=== PATIENT | female | born 1960 ===

== ENCOUNTER 2022-01-05 08:33 | Outpatient (CLI) | payer BC, SELFPAY ==
--- NOTE | 2022-01-05 08:30 | RT.EKG_ITS ---
APPROVED REPORT Exam: Resting ECG Reason for Exam: LEE Patient Location: O HR:96 bpm ECG Measurements Heart Rate 96 AXIS AR 150 P 44 QRSd 99 QRS -55 QT 366 T 52 QTc 463 Conclusion Sinus rhythm...normal P axis, V-rate 50- 99 Left anterior fascicular block...axis(240,-40), init forces inf Baseline wander in lead(s) V3
== END 2022-01-05 08:34 | disposition home or self-care (01) ==
LOC: DI.CARD 08:34
PROVIDERS: PCP Nurse Practitioner Family; Visit Provider Internal Medicine Cardiovascular Disease
DX: R06.00 Dyspnea, unspecified (principal); I44.4 Left anterior fascicular block; R94.31 Abnormal electrocardiogram [ECG] [EKG]
CPT/HCPCS: 93010

== ENCOUNTER 2022-01-13 00:10 | Outpatient (CLI) | payer BC, SELFPAY ==
--- NOTE | 2022-01-13 07:15 | DI.NM_ITS ---
APPROVED REPORT Exam: Pharmacologic Ordering Provider:JEFF QUINTEROS, Contact Number: BMI: 0 Indications: DYSPNEA ON EXERTION. Stress Test Details Test: Exercise stress converted to pharmacologic stress due to failure to obtain a diagnostic stress test. Reason for pharmacologic stress test: changed from exercise stress test due to inability to reach t arget heart rate. Nuclear Acquisition: Rest Tc-99m/Stress Tc-99m 1 day Rest Isotope: Tc-99m Sestamibi. Dose: 11.5 Date: 01/13/2022 Injection Time: 1130 Stress Isotope: Tc-99m Sestamibi. Dose: 37.0 Date: 01/13/2022 Injection Time: 1325 HR Resting HR Supine: 74 bpm Max Heart Rate (APMHR): 157.814644 bpm Resting HR Standin bpm Target HR (85% APMHR): 133.674873 bpm Max HR Achieved: 122 bpm % of APMHR: 77.71 Recovery HR: 83 bpm HR response to stress: Normal HR response to stress Comment: Unable to reach THR. Metoprolol succinate not held for test, last taken this AM. BP Resting BP Supine: 152/84 mmHg Resting BP Standin/96 mmHg Max BP: 194/90 mmHg Recovery BP: 150/84 mmHg BP response to stress: Normal blood pressure response to stress. ECG Resting ECG: Sinus Rhythm Ectopy: occasional PVC Stress ECG: Sinus Tachycardia ST Change: No significant ST segment changes noted Arrhythmia: PVCs Recovery ECG: Sinus Rhythm Recovery ST Change: No significant ST segment changes noted Recovery Arrhythmia: PVCs Clinical Reason for Termination: Dyspnea Stress Symptoms: Abdominal discomfort, Chest pain, Dyspnea, Headache, General Fatigue, Dizziness Exercise duration: 03 min02 sec Highest Stage Reached: Stage 1: 1.7 mph at 10% grade. Exercise capacity: 4.64 METs Rate Pressure Product: [id number] Stress ECG Conclusion 1. Resting electrocardiogram showed left anterior fascicular block, possible old anterior myocardial infarction 2. The patient underwent pharmacologic stress coupled with low-level exercise. She achieved 4.64 MET S and 77% of predicted heart rate for age 3. The electrocardiographic portion of the test was nondiagnostic due to inadequate heart rate 4. There were no dysrhythmias 5. See MPI report Stress Test Summary STAGE Time (mins) Speed (mph) Grade (%) HR BP SYMPTOMS METS Supine 74 152/84 Standing 81 188/96 SpO2 99% 1 3 1.7 10 120 SpO2 97%, severe SOB 4.6 1 min post Lexiscan injection 117 c/o dizziness, chest pain, dyspnea, upset stomach, and VIVEROS 3 min post Lexiscan injection 90 194/90 6 min post Lexiscan injection 82 150/84 symptoms resolved Patient extremely anxious during test. Reports baseline dizziness, especially with positional changes , and moderate headache. Unable to exercise past first stage of Isaias protocol. Reports all the symp toms after lexiscan injection, and becoming tremulous and tearful. Symptoms resolved within a few mi nutes of rest. MPI Conclusion Normal myocardial perfusion. There is no evidence of ischemia or prior infarction EF 70%, normal wall motion Radiologist Interpretation Radiologist agrees with Pantograph Machine Operator's Interpretation. Radiologist Interpretation by: Gabi Knight MD Interpretation Date/Time: 01/13/2022 16:21:23
[2022-01-13] MEDS: Regadenoson 0.4 MG/5 ML SYR IVP (13:35)
== END 2022-01-13 00:30 ==
PROVIDERS: PCP Nurse Practitioner Family; Visit Provider Internal Medicine Cardiovascular Disease
DX: R06.09 Other forms of dyspnea (principal)
CPT/HCPCS: 78452; 93017; J2785

== ENCOUNTER → 2025-04-05 09:52 | Outpatient (BNVA) | payer MEDICARE, SELFPAY | PROVIDERS: PCP Nurse Practitioner Family; Referring Provider Nurse Practitioner Family; Visit Provider Physician Assistant | DX: M23.92 Unspecified internal derangement of left knee (principal) | CPT/HCPCS: 20610; J1010 ==